=== PATIENT | male | born 1975 | race African-American/Black ===

== ENCOUNTER 2016-12-18 08:39 | Emergency (ER) | payer MEDICAID ==
[~2016-12-18] VITALS: Ht 167.6 cm; Wt 94.3 kg
[~2016-12-18 08:39] MED LIST: ALBUPOW26
[2016-12-18] MEDS ORDERED: SODIUM CHLORIDE 0.9% 1,000 ML IV ONE ×2 (09:49)
[2016-12-18] MEDS ORDERED: InsuLIN REG 1unit/0.01ml Soln (100units/ml) IV ONE (10:00)
[2016-12-18 10:17] LABS: Basophils # (auto) 0 uL; Basophils % (auto) 0.5 % (0.0-2.0); Eosinophils # (auto) 0.2 uL; Eosinophils % (auto) 2.4 % (0.0-7.0); Hematocrit 42.4 % (41.0-53.0); Hemoglobin 13.9 g/dL (13.5-17.5); Lymphocytes # (auto) 3.2 uL; Lymphocytes % (auto) 49.9 % (10.0-50.0); Mean Corpuscular Hemoglobin 27.8 pg (28.0-32.0); Mean Corpuscular Hgb Conc. 32.9 g/dL (32.0-36.0); Mean Corpuscular Volume 84.6 fL (80.0-100.0); Monocytes # (auto) 0.4 uL; Neutrophils # (auto) 2.6 uL; Neutrophils % (auto) 40.2 % (37.0-80.0); Nucleated Red Blood Cells % 0.5 %; Platelet Count (auto) 292 10^3/uL (140-450); Red Cell Distribution Width 12.9 % (11.8-14.3); White Blood Cell 6.4 10^3/uL (4.4-10.8)
[2016-12-18 10:45] LABS: Albumin 3.6 g/dL (3.4-5.0); Alkaline Phosphatase 90 U/L (45-117); Anion Gap 8 (5-15); Aspartate Aminotransferase 11 U/L (15-37); BUN/Creatinine Ratio 12.1; Bilirubin, Total 0.4 mg/dL (0.2-1.0); Blood Urea Nitrogen 13 mg/dL (7-18); Calcium 8.9 mg/dL (8.5-10.1); Carbon Dioxide 24 mmol/L (21-32); Chloride 103 mmol/L (98-107); GFR African American 99 mL/min; GFR Non-African American 82 mL/min; Glucose 324 mg/dL (74-106); Potassium 4.2 mmol/L (3.5-5.1); Sodium 135 mmol/L (136-145); Total Protein 7.7 g/dL (6.4-8.2)
[2016-12-18 11:23] VITALS: BP 104/74
== END 2016-12-18 13:00 | disposition home or self-care (01) ==
LOC: ER 08:39
DX: E11.65 Type 2 diabetes mellitus with hyperglycemia (principal); R51 Headache; J45.909 Unspecified asthma, uncomplicated; Z79.4 Long term (current) use of insulin; Z87.442 Personal history of urinary calculi
CPT/HCPCS: 36415; 71010; 80053; 82962; 83036; 84484; 85025; 96361; 96374; 99285; J1815; J7030

== ENCOUNTER 2017-08-04 23:00 | Emergency (ER) | payer MEDICAID ==
[~2017-08-04] VITALS: Ht 165.1 cm; Wt 108.9 kg
[2017-08-04 23:15] VITALS: BP 132/83
== END 2017-08-05 03:37 | disposition home or self-care (01) ==
LOC: ER 23:12
DX: M25.512 Pain in left shoulder (principal); E11.9 Type 2 diabetes mellitus without complications; J45.909 Unspecified asthma, uncomplicated; Z87.442 Personal history of urinary calculi
CPT/HCPCS: 73030

== ENCOUNTER 2022-02-22 07:30 | Emergency (ER) | payer OTHER, MEDICAID ==
[~2022-02-22] VITALS: Ht 165.1 cm; Wt 97.8 kg
[2022-02-22] MEDS ORDERED: ACETAMINOPHEN 325 MG TAB PO ONE (08:00)
[2022-02-22 08:50] VITALS: BP 121/64
[2022-02-22] MEDS ORDERED: IBUP800T27 PO (09:39)
[2022-02-22] MEDS ORDERED: AZIT500T66 PO (09:39)
[2022-02-22] MEDS ORDERED: cefTRIAXone SOD 1,000 MG VL IM ONE (09:45)
== END 2022-02-22 09:58 | disposition home or self-care (01) ==
LOC: ER 07:30
DX: J03.90 Acute tonsillitis, unspecified (principal); J45.909 Unspecified asthma, uncomplicated; E11.9 Type 2 diabetes mellitus without complications; Z87.442 Personal history of urinary calculi
CPT/HCPCS: 71045; 96372; 99283; J0696

== ENCOUNTER 2024-11-28 10:23 | Emergency (ER) | payer MEDICAID, OTHER ==
[~2024-11-28] VITALS: Ht 167.6 cm; Wt 95.0 kg
[~2024-11-28 10:23] MED LIST changes: +AZIT500T66 PO; +IBUP-1456 PO
[2024-11-28 10:26] VITALS: BP 138/81; PULSE 89; RESP 16; TEMP 98.1; O2SAT 97
--- NOTE | 2024-11-28 10:53 | ED.PDOC ---
Eye-HPI HPI Comments This is a 49 year old male brought in by self presenting to the ED with chief complaint of right eye pain. Patient reports that he has been experiencing right eye pain with associated redness, photophobia, foreign body sensation, and right temporal headache for the past 2 weeks. Patient relays that he has had previous eye infections and has been using his previously prescribed toradol and redness relief drops with no relief noted. He states he used ofloxacin drops for 2 days but then discontinued them. Patient notes previous history of dark spots in R eye visual field for "a long time," greater than 2 weeks. Patient denies any dizziness, nausea, vomiting, or eye injury. Chief Complaint: Eye Problem Time Seen by MD: 10:50 Primary Care Provider: LUIS CARLOS Tello Notes: Nurses Notes, Medications, Allergies Allergies: Coded Allergies: NO KNOWN ALLERGIES (Unverified , 06/03/10) Home Meds Active Scripts Ibuprofen (Ibuprofen) 800 Mg Tab, 1 TAB PO Q8HP PRN, #30 TAB 1 Refill prn pain. take with food. Prov:JOSÉ LUIS SILVA MD 11/28/24 Gentamicin Sulfate (Gentamicin Sulfate) 0.3 % Erin, 2 DROP OP QID, #5 ML Right eye Prov:JOSÉ LUIS SILVA MD 11/28/24 Ibuprofen (Ibuprofen) 800 Mg Tab, 1 TAB PO QID, #30 TAB Prov:RENÉE REDDY 02/22/22 Azithromycin (Azithromycin) 500 Mg Tab, 1 TAB PO DAILY, #5 TAB Prov:RENÉE REDDY 02/22/22 Reported Medications Albuterol (Albuterol) [facility] 04/09/11 Information Source: Patient Mode of Arrival: Ambulatory Timing: Weeks Duration: Since onset Prehospital treatment: None Quality: Pain, Red, FB sensation Eye Location: Right Lids: Red Conjunctiva: Injection Onset: Spontaneous Throat Exposed to: None Eye Context Recent: Antibiotic Use Associated signs and symptoms: Photophobia Past Medical History PAST MEDICAL HISTORY: Asthma, DM, Kidney Stones Surgical History (Other): kidney stone procedure, Lt shoulder surgery Family History Family History: Reviewed,noncontributory to illness Social History Smoker: Non-Smoker Alcohol: Denies ETOH Use Drugs: Denies Drug Use Lives In: Home Constitutional: denies: chills, diaphoresis, fatigue, fever, malaise, sweats, weakness, others EENTM: reports: eye pain, eye redness, photophobia; denies: blurred vision, double vision, ear bleeding, ear discharge, ear drainage, ear pain, ear ringing, hearing loss, mouth pain, mouth swelling, nasal discharge, nose bleeding, nose congestion, nose pain, tearing, throat pain, throat swelling, voice changes, others Respiratory: denies: cough, hemoptysis, orthopnea, SOB at rest, shortness of breath, SOB with excertion, stridor, wheezing, others Cardiovascular: denies: chest pain, dizzy spells, diaphoresis, Dyspnea on exertion, edema, irregular heart beat, left arm pain, lightheadedness, palpitations, PND, syncope, others Gastrointestinal: denies: abdomen distended, abdominal pain, blood streaked bowels, constipated, diarrhea, dysphagia, difficulty swallowing, hematemesis, melena, nausea, poor appetite, poor fluid intake, rectal bleeding, rectal pain, vomiting, others Genitourinary: denies: burning, dysuria, flank pain, frequency, hematuria, incontinence, penile discharge, penile sore, pain, testicle pain, testicle swelling, urgency, others Neurological: reports: headache; denies: dizziness, fainting, left sided numbness, left sided weakness, numbness, paresthesia, pre-existing deficit, right sided numbness, right sided weakness, seizure, speech problems, tingling, tremors, weakness, others Musculoskeletal: denies: back pain, gout, joint pain, joint swelling, muscle pain, muscle stiffness, neck pain, others Integumetry: denies: bruises, change in color, change in hair/nails, dryness, laceration, lesions, lumps, rash, wounds, others Allergic/Immunocompromised: denies: Difficulty Healing, Frequent Infections, Hives, Itching, others Hematologic/Lymphatic: denies: anemia, blood clots, easy bleeding, easy bruising, swollen glands, others Endocrine: denies: excessive hunger, excessive sweating, excessive thirst, excessive urination, flushing, intolerance to cold, intolerance to heat, unexplained weight gain, unexplained weight loss, others Psychiatric: denies: anxiety, bipolar disorder, depression, hopeless, panic disorder, schizophrenia, sleepless, suicidal, others All Other Systems: Reviewed and Negative Physical Exam General Appearance: Mild Distress HEENT: PERRL/EOMI, Other (R conjunctival injection, tearing, minimal yellow d/c at inner canthus) Neck: Full Range of Motion, Non-Tender, Normal Inspection, Supple Respiratory: No Accessory Muscle Use, No Respiratory Distress Cardiovascular: No Edema, No JVD, Regular Rate/Rhythm Breast Exam: Deferred Gastrointestinal: Other (non-distended) Genitalia: Deferred Pelvic: Deferred Rectal: Deferred Extremities: Normal inspection, Normal range of motion, No pedal edema Neurologic: Alert (oriented x4), Other (ambulatory) Cerebellar Function: NOT DONE Reflexes: NOT DONE Skin: Dry, Normal Color, Warm Lymphatic: NOT DONE Was a procedure done? Was a procedure done?: No EENT DIFF Eye: Conjunctivitis, Bacterial, Corneal Abrasion, Glaucoma, Ultraviolet Keratitis X-Ray, Labs, Meds, VS Vital Signs Date Time Temp Pulse Resp B/P (MAP) Pulse Ox O2 Delivery O2 Flow Rate FiO2 11/28/24 10:26 98.1 89 16 138/81 97 98.1 Current Medications Medications (Trade) Dose Ordered Sig/Souleymane Route Start Time Stop Time Status Last Admin Ibuprofen (Motrin Tablet) 800 mg ONCE ONCE PO 11/28/24 11:00 11/28/24 11:01 DC 11/28/24 11:00 X-Ray, Labs, Meds, VS Comment 49-year-old male with a history of prior conjunctivitis, asthma, diabetes and kidney stones who brought himself to the ER for evaluation of right eye redness, pain, tearing and light sensitivity for the past 2 weeks Vitals unremarkable Exam remarkable for right eye conjunctival injection, tearing, minimal yellow discharge at the inner canthus Rhythm strip independently interpreted by me: Sinus rhythm, rate 89, no ectopy. Patient treated with the following in the ED: Ibuprofen 800 mg p.o. Patient was advised regarding the requirement for urgent follow-up with an founder / ceo. He was advised to go directly to [place] or [facility] to be evaluated by an founder / ceo if he can not obtain an outpatient appointment within the next 2 days. Patient was referred to local founder / ceo, including [facility] [place] of ophthalmology, Dr. Drake, [facility] [place], and Dr. Levin. He was provided with a prescription for gentamicin ophthalmic and ibuprofen, and advised to return to the ER for persistent or worsening symptoms, or inability to obtain urgent ophthalmologic follow-up. Time of 1ST Reevaluation: 11:48 Reevaluation 1ST: Unchanged Patient Education/Counseling: Diagnosis, Treatment Family Education/Counseling: No Family Present SEPSIS Sepsis Screen Date sepsis recognized/suspect: Nov 28, 2024 Time Sepsis recognized/suspect: 102 Recent Procedure: No On Antibiotic Therapy: No Respiratory Rate >20: No Heart Rate >90: No Temp<36 C (96.8 F) or >38.3 C: No SBP <90 or MAP <65 mmHG: No New Acute Mental Status Change: No Is the patient on CPAP, BIPAP,: No Vital Signs Date Time Temp Pulse Resp B/P (MAP) Pulse Ox O2 Delivery O2 Flow Rate FiO2 11/28/24 10:26 98.1 89 16 138/81 97 98.1 Medications Medications Dose Ordered Sig/Souleymnae Route Start Time Stop Time Status Last Admin Dose Admin Ibuprofen 800 mg ONCE ONCE PO 11/28/24 11:00 11/28/24 11:01 DC 11/28/24 11:00 Departure 1 Departure Time of Disposition: 11:02 Impression: Primary Impression: Conjunctivitis Disposition: HOME / SELF CARE / HOMELESS Condition: Stable Additional Instructions: You must follow-up urgently (within the next 1-2 days) with an founder / ceo for further evaluation. I have provided referrals for local founder / ceo. If you are unable to obtain urgent follow-up, go directly to [facility] or [facility] to be evaluated by an founder / ceo. e-Prescriptions Ibuprofen (Ibuprofen) 800 Mg Tab 1 TAB PO Q8HP PRN, #30 TAB 1 Refill prn pain. take with food. Prov: JOSÉ LUIS SILVA MD 11/28/24 Gentamicin Sulfate (Gentamicin Sulfate) 0.3 % Erin 2 DROP OP QID, #5 ML Right eye Prov: JOSÉ LUIS SILVA MD 11/28/24 Discharged With: Self Critical Care Note Critical Care Time?: No Stability Stability form required: No Heart Score Heart Score: Heart Score Response (Comments) Value History N/A 0 EKG N/A 0 Age N/A 0 Risk Factors N/A 0 Troponin N/A 0 Total 0 I personally scribed for JOSÉ LUIS SILVA MD ([email or web address]) on 11/28/24 at 10:53. Electronically submitted by Con Gómez ([email or web address]). JOSÉ LUIS SILVA MD Nov 28, 2024 10:53
[2024-11-28] MEDS: IBUPROFEN 800 MG TAB PO ONE (11:00)
[2024-11-28] MEDS ORDERED: IBUP-1456 PO (11:04)
[2024-11-28] MEDS ORDERED: GENT0.3S10 OP (11:04)
== END 2024-11-28 11:42 | disposition home or self-care (01) ==
LOC: ER 10:23
DX: H10.9 Unspecified conjunctivitis (principal); J45.909 Unspecified asthma, uncomplicated; E11.9 Type 2 diabetes mellitus without complications; Z79.899 Other long term (current) drug therapy

== ENCOUNTER 2025-03-01 16:15 | Emergency (ER) | payer MEDICAID ==
[~2025-03-01] VITALS: Ht 167.6 cm; Wt 94.0 kg
[~2025-03-01 16:15] MED LIST changes: +GENT0.3S10 OP
[2025-03-01 18:23] LABS: Hematocrit 41.8 % (41.0-53.0); Hemoglobin 14.0 g/dL (13.5-17.5); Mean Corpuscular Hemoglobin 27.9 pg (28.0-32.0); Mean Corpuscular Volume 83.1 fL (80.0-100.0); Nucleated Red Blood Cells % 0.1 %
[2025-03-01 18:36] LABS: Alanine Aminotransferase 16 U/L (7-40); Alkaline Phosphatase 83 U/L (46-116); Anion Gap 11 (5-15); BUN/Creatinine Ratio 8.9 (10.0-20.0); Blood Urea Nitrogen 12 mg/dL (9-23); Calcium 10.2 mg/dL (8.7-10.4); Carbon Dioxide 20 mmol/L (20-31); Chloride 105 mmol/L (98-107); Magnesium 2.0 mg/dL (1.6-2.6); Sodium 136 mmol/L (136-145)
[2025-03-01 18:37] LABS: Albumin 5.0 g/dL (3.2-4.8); Bilirubin, Total 1.1 mg/dL (0.2-1.0); Glucose 181 mg/dL (74-106); Potassium 3.2 mmol/L (3.5-5.1); Total Protein 8.6 g/dL (5.7-8.2)
--- NOTE | 2025-03-01 18:43 | ED.PDOC ---
GI ASSESSMENT HPI Comments 49y M who presents to the ED via EMS for chief complaint of abdominal pain. Pt states he has been having nausea and vomiting since earlier this AM at around 0600. Pt states his pain is diffusely located, aching in nature, constant, with no noted exacerbating or relieving factors. Pt has associated nausea and vomiting but denies any other symptoms. Pt states he has history of diabetes and states he was switched to insulin due to hemglobin AlC at 14.9 but states he has not been consistent with his DM medications Chief Complaint: Abdominal Pain Time Seen by MD: 18:41 Primary Care Provider: LUIS CARLOS Tello Notes: Medications, Allergies Allergies: Coded Allergies: NO KNOWN ALLERGIES (Unverified , 06/03/10) Home Meds Active Scripts Ibuprofen (Ibuprofen) 800 Mg Tab, 1 TAB PO Q8HP PRN, #30 TAB 1 Refill prn pain. take with food. Prov:JOSÉ LUIS SILVA MD 11/28/24 Gentamicin Sulfate (Gentamicin Sulfate) 0.3 % Erin, 2 DROP OP QID, #5 ML Right eye Prov:JOSÉ LUIS SILVA MD 11/28/24 Ibuprofen (Ibuprofen) 800 Mg Tab, 1 TAB PO QID, #30 TAB Prov:RENÉE REDDY 02/22/22 Azithromycin (Azithromycin) 500 Mg Tab, 1 TAB PO DAILY, #5 TAB Prov:RENÉE REDDY 02/22/22 Reported Medications Albuterol (Albuterol) [facility] 04/09/11 Information Source: Patient, Emergency Med Personnel Mode of Arrival: EMS Past Medical History PAST MEDICAL HISTORY: Asthma, DM, Kidney Stones Family History Family History: Reviewed,noncontributory to illness Social History Smoker: Non-Smoker Alcohol: Denies ETOH Use Drugs: Denies Drug Use Lives In: Home Constitutional: denies: chills, diaphoresis, fatigue, fever, malaise, sweats, weakness, others EENTM: denies: blurred vision, double vision, ear bleeding, ear discharge, ear drainage, ear pain, ear ringing, eye pain, eye redness, hearing loss, mouth pain, mouth swelling, nasal discharge, nose bleeding, nose congestion, nose pain, photophobia, tearing, throat pain, throat swelling, voice changes, others Respiratory: denies: cough, hemoptysis, orthopnea, SOB at rest, shortness of breath, SOB with excertion, stridor, wheezing, others Cardiovascular: denies: chest pain, dizzy spells, diaphoresis, Dyspnea on exertion, edema, irregular heart beat, left arm pain, lightheadedness, palpitations, PND, syncope, others Gastrointestinal: reports: abdominal pain, nausea, vomiting; denies: abdomen distended, blood streaked bowels, constipated, diarrhea, dysphagia, difficulty swallowing, hematemesis, melena, poor appetite, poor fluid intake, rectal bleeding, rectal pain, others Genitourinary: denies: burning, dysuria, flank pain, frequency, hematuria, incontinence, penile discharge, penile sore, pain, testicle pain, testicle swelling, urgency, others Neurological: denies: dizziness, fainting, headache, left sided numbness, left sided weakness, numbness, paresthesia, pre-existing deficit, right sided numbness, right sided weakness, seizure, speech problems, tingling, tremors, weakness, others Musculoskeletal: denies: back pain, gout, joint pain, joint swelling, muscle pain, muscle stiffness, neck pain, others Integumetry: denies: bruises, change in color, change in hair/nails, dryness, laceration, lesions, lumps, rash, wounds, others Allergic/Immunocompromised: denies: Difficulty Healing, Frequent Infections, Hives, Itching, others Hematologic/Lymphatic: denies: anemia, blood clots, easy bleeding, easy bruising, swollen glands, others Endocrine: denies: excessive hunger, excessive sweating, excessive thirst, excessive urination, flushing, intolerance to cold, intolerance to heat, unexplained weight gain, unexplained weight loss, others Psychiatric: denies: anxiety, bipolar disorder, depression, hopeless, panic disorder, schizophrenia, sleepless, suicidal, others All Other Systems: Reviewed and Negative Physical Exam General Appearance: Moderate Distress HEENT: Normal ENT Inspection, PERRL/EOMI Neck: Full Range of Motion, Non-Tender, Normal, Normal Inspection Respiratory: Chest Non-Tender, Lungs Clear, No Accessory Muscle Use, No Respiratory Distress, Normal Breath Sounds Cardiovascular: No Edema, No JVD, No Murmur, No Gallop, Normal Peripheral Pulses, Regular Rate/Rhythm Breast Exam: Deferred Gastrointestinal: No Organomegaly, Non Tender, No Pulsatile Mass, Normal Bowel Sounds, Soft Genitalia: Deferred Pelvic: Deferred Rectal: Deferred Extremities: No calf tenderness, Normal capillary refill, Normal inspection, Normal range of motion, Non-tender, No pedal edema Neurologic: Alert, inventory administrator II-XII nml as Tested, No Motor Deficits, Normal Affect, Normal Mood, No Sensory Deficits Cerebellar Function: Normal Reflexes: Normal Skin: Dry, Normal Color, Warm Peripheral Pulses: 1+ carotid (R), 1+ carotid (L) Lymphatic: No Adenopathy Was a procedure done? Was a procedure done?: No GI differential Dx Differential Diagnosis: Constipation, Gastritis/PUD, Gastroenteritis, Pancreatitis, UTI, Dehydration, Diabetes/ DKA, Drug toxicity, Electrolyte Imbalance, Food Poisoning, Bacterial, Viral Other Differential Diagnosis uncontrolled DM, X-Ray, Labs, Meds, VS Vital Signs Date Time Temp Pulse Resp B/P (MAP) Pulse Ox O2 Delivery O2 Flow Rate FiO2 03/01/25 16:43 98.9 91 22 134/84 100 98.9 Lab Test 03/01/25 18:12 Range/Units White Blood Count 7.6 4.4-10.8 10^3/uL Red Blood Count 5.03 4.5-5.90 10^6/uL Hemoglobin 14.0 13.5-17.5 g/dL Hematocrit 41.8 41.0-53.0 % Mean Corpuscular Volume 83.1 80.0-100.0 fL Mean Corpuscular Hemoglobin 27.9 L 28.0-32.0 pg Mean Corpuscular Hemoglobin Concent 33.6 32.0-36.0 g/dL Red Cell Distribution Width 13.0 11.8-14.3 % Platelet Count 413 140-450 10^3/uL Mean Platelet Volume 7.5 6.9-10.8 fL Neutrophils (%) (Auto) 62.2 37.0-80.0 % Lymphocytes (%) (Auto) 30.6 10.0-50.0 % Monocytes (%) (Auto) 6.1 0.0-12.0 % Eosinophils (%) (Auto) 0.4 0.0-7.0 % Basophils (%) (Auto) 0.7 0.0-2.0 % Neutrophils # (Auto) 4.7 1.6-8.6 10 ^3/uL Lymphocytes # (Auto) 2.3 0.4-5.4 10 ^3/uL Monocytes # (Auto) 0.5 0-1.3 10 ^3/uL Eosinophils # (Auto) 0 0-0.8 10 ^3/uL Basophils # (Auto) 0.1 0-0.2 10 ^3/uL Nucleated Red Blood Cells 0.1 % Sodium Level 136 136-145 mmol/L Potassium Level 3.2 L 3.5-5.1 mmol/L Chloride Level 105 98-107 mmol/L Carbon Dioxide Level 20 20-31 mmol/L Anion Gap 11 5-15 Blood Urea Nitrogen 12 9-23 mg/dL Creatinine 1.35 H 0.700-1.30 mg/dL Glomerular Filtration Rate Calc 65 >90 mL/min BUN/Creatinine Ratio 8.9 L 10.0-20.0 Serum Glucose 181 H 74-106 mg/dL Calcium Level 10.2 8.7-10.4 mg/dL Magnesium Level 2.0 1.6-2.6 mg/dL Total Bilirubin 1.1 H 0.2-1.0 mg/dL Aspartate Amino Transferase (AST) 17 13-40 U/L Alanine Aminotransferase (ALT) 16 7-40 U/L Alkaline Phosphatase 83 46-116 U/L Total Protein 8.6 H 5.7-8.2 g/dL Albumin 5.0 H 3.2-4.8 g/dL Lipase Pending X-Ray, Labs, Meds, VS Comment Course in the emergency department even full patient denies diabetes CBCs negative CMP potassium 3.2 Blood sugar 1 NG tube Rest normal Patient we will be hydrated medication Mood be discharged home to follow up with he is PCP Time of 1ST Reevaluation: 19:15 Reevaluation 1ST: Unchanged Time of 2ND Reevaluation: 18:46 Reevaluation 2ND: Improved Consultation: PCP Patient Education/Counseling: Diagnosis, Treatment, Prognosis, Need For Follow Up Family Education/Counseling: Diagnosis, Treatment, Prognosis, Need For Follow Up, No Family Present SEPSIS Sepsis Screen Date sepsis recognized/suspect: Mar 01, 2025 Time Sepsis recognized/suspect: 1608 Recent Procedure: No On Antibiotic Therapy: No Respiratory Rate >20: No Heart Rate >90: Yes Temp<36 C (96.8 F) or >38.3 C: No SBP <90 or MAP <65 mmHG: No New Acute Mental Status Change: No Is the patient on CPAP, BIPAP,: No Physician Orders Comprehensive Metabolic Panel (03/01/25 18:04) Lipase (03/01/25 18:04) Urinalysis (03/01/25 18:04) Sodium Chloride 0.9% (03/01/25 18:15) Heplock Iv (03/01/25 18:04) Magnesium (03/01/25 18:04) Vital Signs Date Time Temp Pulse Resp B/P (MAP) Pulse Ox O2 Delivery O2 Flow Rate FiO2 03/01/25 16:43 98.9 91 22 134/84 100 98.9 Laboratory Tests Test 03/01/25 18:12 White Blood Count 7.6 10^3/uL (4.4-10.8) Departure 1 Departure Time of Disposition: 18:47 Impression: Primary Impression: Uncontrolled diabetes mellitus Qualified Codes: E11.65 - Type 2 diabetes mellitus with hyperglycemia Additional Impressions: Nausea and vomiting due to hyperglycemia Hypokalemia Disposition: HOME / SELF CARE / HOMELESS Condition: Fair Additional Instructions: Push fluids and follow up with your PCP e-Prescriptions Ondansetron Odt 4MG Tab (ZOFRAN PO) 4 Mg Tb 4 MG PO TID for 10 Days, #30 TAB ODT TAB-DISSOLVE IN MOUTH, THEN SWALLOW Prov: IVETT ALMEIDA MD 03/01/25 Discharged With: Self Critical Care Note Critical Care Time?: No Stability Stability form required: No Heart Score Heart Score: Heart Score Response (Comments) Value History N/A 0 EKG N/A 0 Age 45-64 1 Risk Factors 1 or 2 risk factors 1 Troponin N/A 0 Total 2 I personally scribed for IVETT ALMEIDA MD ([email or web address]) on 03/01/25 at 18:42. Electronically submitted by Mikki Paz ([email or web address]). IVETT ALMEIDA MD Mar 01, 2025 18:42
[2025-03-01 18:50] LABS: Lipase 32 U/L (12-53)
[2025-03-01] MEDS ORDERED: ZOFR4T PO (18:51)
[2025-03-01 21:10] VITALS: BP 131/90; TEMP 98.8
[2025-03-01 21:11] VITALS: PULSE 114; RESP 18; O2SAT 97
[2025-03-01] MEDS: POTASSIUM EFFERVESENT TAB 25 MEQ PO ONE (21:20)
[2025-03-01] MEDS: ONDANSETRON HCL 4 MG/2 ML VIAL IV ONE (21:21)
[2025-03-01] MEDS: SODIUM CHLORIDE 0.9% 1,000 ML IVB ONE (21:22)
== END 2025-03-01 21:21 | disposition home or self-care (01) ==
LOC: EDBD 16:15 → ER 16:15
DX: E11.65 Type 2 diabetes mellitus with hyperglycemia (principal); E87.6 Hypokalemia; R11.2 Nausea with vomiting, unspecified; J45.909 Unspecified asthma, uncomplicated; Z79.899 Other long term (current) drug therapy
CPT/HCPCS: 36415; 80053; 83690; 83735; 85025